=== PATIENT | female | born 1955 | race Caucasian/White ===

== ENCOUNTER → 2020-08-31 | Outpatient (REF) | payer OTHER | LOC: M LAB REF 15:50 | PROVIDERS: ATTEND Internal Medicine Gastroenterology | DX: K58.9 Irritable bowel syndrome, unspecified (principal) ==

== ENCOUNTER → 2020-09-14 | Outpatient (REF) | payer OTHER ==
[2020-09-14 16:46] LABS: CREATININE FOR GFR 1.01 MG/DL (0.55-1.30); GLOMERULAR FILTRATION RATE 58.6 (>45)
== END ==
LOC: M LABDRAWC 15:45
PROVIDERS: ATTEND Internal Medicine Gastroenterology
DX: K57.21 Diverticulitis of large intestine with perforation and abscess with bleeding (principal); N30.10 Interstitial cystitis (chronic) without hematuria

== ENCOUNTER → 2020-09-21 | Outpatient (CLI) | payer OTHER ==
[~2020-09-21] MED LIST: PROHANCE 279.3MG/ML 5ML VIAL As Ordered ONE
--- NOTE | 2020-09-21 20:58 | REP ---
INDICATION: DIVERTICULITIS, ABSCESS WITH BLEEDING. COMPARISON: None. TECHNIQUE: Multiple sequences obtained in the axial, coronal and sagittal planes prior to and following the intravenous administration of 5 mL ProHance. FINDINGS: There is no adenopathy in the pelvis. No pelvic mass or free fluid is identified. There are multiple sigmoid diverticula present. Uterine length is 5.8 cm. There is no endometrial thickening. Urinary bladder is collapsed and not well evaluated. Visualized osseous structures demonstrate no abnormal bone marrow signal or bone marrow enhancement. IMPRESSION: Sigmoid diverticulosis. No adenopathy, mass or free fluid. <Electronically signed by David Lim > 09/21/20 [id number]
== END ==
LOC: M RAD 17:04
PROVIDERS: ATTEND Internal Medicine Gastroenterology
DX: K57.30 Diverticulosis of large intestine without perforation or abscess without bleeding (principal); N30.10 Interstitial cystitis (chronic) without hematuria
CPT/HCPCS: 72197; A9576

== ENCOUNTER → 2020-10-03 | Outpatient (CLI) | payer OTHER ==
[~2020-10-03] MED LIST changes: +PROHANCE 279.3MG/ML 15ML VIAL As Ordered ONE; -PROHANCE 279.3MG/ML 5ML VIAL As Ordered ONE
--- NOTE | 2020-10-03 18:50 | REP ---
INDICATION: DIVERTICULITIS, ABSCESS WITH BLEEDING. COMPARISON: None. TECHNIQUE: Multiple sequences obtained in the axial coronal planes prior to and following the intravenous administration of 6 mL ProHance. FINDINGS: Liver, spleen, adrenals, and pancreas are unremarkable. Pancreatic duct is normal in caliber. The gallbladder appears unremarkable. No filling defects are seen. There is no biliary dilatation. The liver and spleen are normal in size. There are couple of small parapelvic cysts centrally of the left kidney with no other renal abnormality bilaterally. The abdominal aorta is normal in caliber with no aneurysm. There is no adenopathy. There is no free fluid. IMPRESSION: Essentially negative MRI of the abdomen as discussed above. <Electronically signed by David Lim > 10/03/20 [id number]
== END ==
LOC: M RAD 16:01
PROVIDERS: ATTEND Internal Medicine Gastroenterology
DX: K57.21 Diverticulitis of large intestine with perforation and abscess with bleeding (principal); N30.10 Interstitial cystitis (chronic) without hematuria
CPT/HCPCS: 74183; A9576